=== PATIENT | female | born 1985 | race Two or more races ===

== ENCOUNTER 2016-09-13 20:18 | Emergency (ER) | payer OTHER ==
[2016-09-13 20:29] VITALS: BP 138/90; PULSE 110; BMI 25.4
[2016-09-13] MEDS ORDERED: FAMOTIDINE 20 MG/50 ML IVPB 50 ML IVPB ONE ×2 (21:00→21:25)
[2016-09-13] MEDS ORDERED: SODIUM CHLORIDE 1,000 ML IV STA (21:00)
[2016-09-13] MEDS ORDERED: ACETAMINOPHEN 325 MG TABLET (FP) PO ONE (21:00)
[2016-09-13] MEDS ORDERED: ACETAMINOPHEN 325 MG TABLET (FP) ONE (21:25)
--- NOTE | 2016-09-13 21:49 | PDOC ---
History of Present Illness - General History Source: Patient Exam Limitations: No Limitations - History of Present Illness Initial Comments: 09/14/16 00:30 The patient is a 31 year old female (), with no significant past medical history, who presents to the ED with sharp epigastric and suprapubic pain. The patient went for a routine transvaginal ultrasound with her claims counsel doctor today. She reported that she had an IUP. Approximately 2 hours prior to arrival , after she ate some food, she developed a sharp epigastric and suprapubic pain. Patient describes the abdominal pain as 9/10 in severity. Patient states the abdominal pain starts from the top mid abdomen and radiates to the bottom. Patient denies nausea, vomiting, diarrhea. Patient denies vagianal discharge, bleeding. <Lee Nunn - Last Filed: 09/14/16 00:30> - General History Source: Patient, Family Exam Limitations: No Limitations <Homero Kulkarni - Last Filed: 09/14/16 02:13> - General Chief Complaint: Pain Stated Complaint: 7WKS/ABD PAIN Time Seen by Provider: 09/13/16 20:55 Past History <Lee Nunn - Last Filed: 09/14/16 00:30> - Past Medical History Other medical history: Denies - Reproductive History (#): 3 Para: 0 Cervical CA: No Dysfunctional Uterine Bleeding: No Ectopic : Yes (1) Endometrial CA: No Polycystic Ovaries: No Therapeutic (s) & number: Yes (1) Tubal Ligation: No Spontaneous : 1 - Immunization History Immunization Up to Date: Yes - Psycho/Social/Smoking Cessation Hx Anxiety: No Suicidal Ideation: No Smoking History: Never smoked Have you smoked in the past 12 months: No Information on smoking cessation initiated: No Hx Alcohol Use: No Drug/Substance Use Hx: No Substance Use Type: None Hx Substance Use Treatment: No <Homero Kulkarni - Last Filed: 09/14/16 02:13> - Past Medical History Allergies/Adverse Reactions: Allergies Allergy/AdvReac Type Severity Reaction Status Date / Time No Known Allergies Allergy Verified 09/13/16 20:24 Home Medications: Ambulatory Orders Oxycodone HCl/Acetaminophen [Percocet 5/325 -] 1 tab PO Q6H #20 tablet 11/29/15 Acetaminophen [Tylenol] 650 mg PO Q4H PRN #20 tablet 09/14/16 Oxycodone HCl 5 mg PO Q6H PRN #15 tablet MDD 4 09/14/16 Review of Systems - Review of Systems Able to Perform ROS?: Yes Comments:: 09/14/16 00:30 GENERAL/CONSTITUTIONAL: No fever or chills. No weakness. HEAD, EYES, EARS, NOSE AND THROAT: No change in vision. No ear pain or discharge. No sore throat. CARDIOVASCULAR: No chest pain or shortness of breath. RESPIRATORY: No cough, wheezing, or hemoptysis. GASTROINTESTINAL: No nausea, vomiting, diarrhea or constipation. GENITOURINARY: No dysuria, frequency, or change in urination. MUSCULOSKELETAL: No joint or muscle swelling or pain. No neck or back pain. ABDOMINAL: Epigastric and suprapubic pain. SKIN: No rash NEUROLOGIC: No headache, vertigo, loss of consciousness, or change in strength/ sensation. ENDOCRINE: No increased thirst. No abnormal weight change. HEMATOLOGIC/LYMPHATIC: No anemia, easy bleeding, or history of blood clots. ALLERGIC/IMMUNOLOGIC: No hives or skin allergy. <Lee Nunn - Last Filed: 09/14/16 00:30> *Physical Exam - Vital Signs Last Vital Signs Temp Pulse Resp BP Pulse Ox 110 H 16 138/90 100 09/13/16 20:24 09/13/16 20:24 09/13/16 20:24 09/13/16 20:24 - Physical Exam Comments: 09/14/16 00:31 GENERAL: Awake, alert, and fully oriented, in no acute distress HEAD: No signs of trauma EYES: PERRLA, EOMI, sclera anicteric, conjunctiva clear ENT: Auricles normal inspection, hearing grossly normal, nares patent, oropharynx clear without exudates. Moist mucosa NECK: Normal ROM, supple, no lymphadenopathy, JVD, or masses LUNGS: Breath sounds equal, clear to auscultation bilaterally. No wheezes, and no crackles HEART: Regular rate and rhythm, normal S1 and S2, no murmurs, rubs or gallops ABDOMEN: Suprapubic and epigastric tenderness. normoactive bowel sounds. No guarding, no rebound. No masses EXTREMITIES: Normal range of motion, no edema. No clubbing or cyanosis. No cords, erythema, or tenderness NEUROLOGICAL: Cranial nerves II through XII grossly intact. Normal speech, normal gait SKIN: Warm, Dry, normal turgor, no rashes or lesions noted. <Lee Nunn - Last Filed: 09/14/16 00:30> - Vital Signs Last Vital Signs Temp Pulse Resp BP Pulse Ox 110 H 16 138/90 100 09/13/16 20:24 09/13/16 20:24 09/13/16 20:24 09/13/16 20:24 <Homero Kulkarni - Last Filed: 09/14/16 02:13> ED Treatment Course - LABORATORY CBC & Chemistry Diagram: 09/13/16 21:20 09/13/16 22:52 - ADDITIONAL ORDERS Additional order review: Laboratory Results 09/13/16 09/13/16 09/13/16 22:52 21:20 21:20 Sodium 138 Cancelled Potassium 4.2 Cancelled Chloride 105 Cancelled Carbon Dioxide 20 L D Cancelled Anion Gap 13 Cancelled BUN 11 Cancelled Creatinine 0.6 Cancelled Creat Clearance w eGFR > 60 Cancelled Random Glucose 129 H D Cancelled Calcium 8.3 L Cancelled Total Bilirubin 0.3 D Cancelled AST 23 D Cancelled ALT 20 Cancelled Alkaline Phosphatase 61 D Cancelled Total Protein 7.0 Cancelled Albumin 3.5 Cancelled Lipase 159 Cancelled Beta HCG, Quant Cancelled Blood Type Cancelled Antibody Screen Cancelled Spec Expiration Date Cancelled 09/13/16 21:20 RBC 3.84 MCV 94.5 MCHC 32.4 RDW 12.8 MPV 10.3 Neutrophils % 80.1 Lymphocytes % 12.4 D Monocytes % 6.6 Eosinophils % 0.5 Basophils % 0.4 - Medications Given in the ED: ED Medications Discontinued Medications Generic Name Dose Route Start Last Admin Trade Name Freq PRN Reason Stop Dose Admin Acetaminophen 650 mg 09/13/16 21:00 09/13/16 21:35 Tylenol - PO 09/13/16 21:01 650 mg ONCE ONE Administration Famotidine/Sodium Chloride 50 mls @ 100 mls/hr 09/13/16 21:00 09/13/16 21:35 Pepcid 20 Mg Premixed Ivpb - IVPB 09/13/16 21:29 100 mls/hr ONCE ONE Administration Sodium Chloride 1,000 mls @ 1,000 mls/hr 09/13/16 21:00 09/13/16 21:24 Normal Saline - IV 09/13/16 21:59 1,000 mls/hr ASDIR STA Administration Oxycodone HCl 10 mg 09/13/16 23:03 09/13/16 23:08 Roxicodone - PO 09/13/16 23:04 10 mg ONCE ONE Administration <Lee Nunn - Last Filed: 09/14/16 00:30> - LABORATORY CBC & Chemistry Diagram: 09/13/16 21:20 09/13/16 22:52 - RADIOLOGY Radiology Studies Ordered: Category Date Time Status ABDOMEN US [US] Stat Ultrasound 09/13/16 21:00 Ordered TRANSVAGINAL US PREG [US] Stat Ultrasound 09/13/16 21:00 Ordered <Homero Kulkarni - Last Filed: 09/14/16 02:13> Medical Decision Making - Medical Decision Making 09/13/16 21:03 A portion of this note was documented by scribe services under my direction. I have reviewed the details of the note, within reason, and agree with the documentation with the following case summary and management plan written by me. Patient treated in the ED. Nursing notes are reviewed and incorporated into the medical decision-making. Vital signs reviewed. Peripheral IV access obtained by the nurse, laboratory studies are drawn and sent, reviewed and interpreted by myself. Vital Signs Temp Pulse Resp BP Pulse Ox 110 H 16 138/90 100 09/13/16 20:24 09/13/16 20:24 09/13/16 20:24 09/13/16 20:24 31-year-old female with no past medical history, approximate 7 weeks , presents to the emergency department for suprapubic and epigastric abdominal pain. The patient went for a routine transvaginal ultrasound with her claims counsel doctor today. She reported that she had an IUP. Approximately 2 hours prior to arrival, after she ate some food, she developed a sharp epigastric and suprapubic pain. Denies vaginal bleeding, dysuria, nauesa, vomiting. The patient has a history of 3 miscarriages. She has no tenderness at McBurney's. Will r/o cystitis, miscarriage. Will also treat as gastritis. Will check labs. Pain medications and IVF and reassess. 09/14/16 01:56 Before the patient went to her ultrasound, she had a large bleed from her vagina. I suspect she is likely having a miscarriage. CBC, BMP 09/13/16 21:20 09/13/16 22:52 CMP Sodium 138 mmol/L (136-145) 09/13/16 22:52 Potassium 4.2 mmol/L (3.5-5.1) 09/13/16 22:52 Chloride 105 mmol/L (98-107) 09/13/16 22:52 Carbon Dioxide 20 mmol/L (21-32) L D 09/13/16 22:52 Anion Gap 13 (8-16) 09/13/16 22:52 BUN 11 mg/dL (7-18) 09/13/16 22:52 Creatinine 0.6 mg/dL (0.55-1.02) 09/13/16 22:52 Creat Clearance w eGFR > 60 (>60) 09/13/16 22:52 Random Glucose 129 mg/dL (74-106) H D 09/13/16 22:52 Calcium 8.3 mg/dL (8.5-10.1) L 09/13/16 22:52 Total Bilirubin 0.3 mg/dL (0.2-1.0) D 09/13/16 22:52 AST 23 U/L (15-37) D 09/13/16 22:52 ALT 20 U/L (12-78) 09/13/16 22:52 Alkaline Phosphatase 61 U/L (45-117) D 09/13/16 22:52 Total Protein 7.0 g/dl (6.4-8.2) 09/13/16 22:52 Albumin 3.5 g/dl (3.4-5.0) 09/13/16 22:52 Lipase 159 U/L (73-393) 09/13/16 22:52 Beta HCG, Quant 3251.0 mIU/ml 09/14/16 00:23 Previous type and screen is B positive. Beta HCG is 3251. Abdominal ultrasound reviewed. No acute findings. Transvaginal ultrasound: multiple leiomyomas, endometrium is thickened and heterogeneous in appearance measuring up to 1.9 cm with no intrauterine gestational sac visualized. In the setting of confirmed intrauterine findings could be related to spontaneous with possible retained products of conception. Ectopic gestation cannot be ruled out. I had discussed the case directly with patient's [employer] OPERATOR surgeon Dr. Jett at [phone]. She confirms to me that the patient did indeed have an IUP today on her visit earlier today. She agrees that the patient can follow up in 2 days with her. The patient feels better. Results have been given a copy. She will go home with her family. Return precautions given. I discussed the physical exam findings, ancillary test results and final diagnoses with the patient. I answered all of the patient's questions. The patient was satisfied with the care received and felt comfortable with the discharge plan and treatment plan. The patient will call their primary care physician within 24 hours to arrange follow-up and will return to the Emergency Department with any new, persistant or worsening symptoms. <Homero Kulkarni - Last Filed: 09/14/16 02:13> *DC/Admit/Observation/Transfer - Attestations Scribe Attestion: 09/14/16 00:31 Documentation prepared by Lee Nunn, acting as director of medical services for Homero Kulkarni MD, . <Lee Nunn - Last Filed: 09/14/16 00:30> - Discharge Dispostion Admit: No <Homero Kulkarni - Last Filed: 09/14/16 02:13> Diagnosis at time of Disposition: Spontaneous - Discharge Dispostion Disposition: HOME Condition at time of disposition: Improved - Prescriptions Prescriptions: Oxycodone HCl 5 mg PO Q6H PRN #15 tablet MDD 4 PRN Reason: Severe Pain Acetaminophen [Tylenol] 650 mg PO Q4H PRN #20 tablet PRN Reason: Pain - Patient Instructions Printed Discharge Instructions: DI for Miscarriage Additional Instructions: Please bring a copy of your results to your doctor in 2 days. Take 650 mg tylenol every 4 hours as needed for pain. Take a tablet of oxycodone every 6 hours as needed for severe pain control. You may continue to have spotting.
[2016-09-13 22:03] LABS: BASOPHIL 0.4 % (0-2.0); EOSINOPHIL 0.5 % (0-4.5); MCH 30.6 pg (25.7-33.7); MCHC 32.4 g/dl (32.0-36.0); MEAN CELL VOLUME 94.5 fl (80-96); MEAN PLT VOLUME 10.3 fl (7.5-11.1); NEUTROPHILS 80.1 % (42.8-82.8); PLATELET COUNT 284 K/MM3 (134-434); RDW 12.8 % (11.6-15.6); WHITE BLOOD COUNT 16.6 K/mm3 (4.0-10.0)
[2016-09-13] MEDS ORDERED: oxyCODONE HCL 5 MG TABLET ONE (23:01)
[2016-09-13] MEDS ORDERED: oxyCODONE HCL 5 MG TABLET PO ONE (23:03)
[2016-09-13 23:46] LABS: ALBUMIN 3.5 g/dl (3.4-5.0); ALK PHOS 61 U/L (45-117); ANION GAP 13 (8-16); BILIRUBIN,TOTAL 0.3 mg/dL (0.2-1.0); CALCIUM 8.3 mg/dL (8.5-10.1); CO2 20 mmol/L (21-32); CREATININE 0.6 mg/dL (0.55-1.02); GLUCOSE,RANDOM 129 mg/dL (74-106); SGPT/ALT 20 U/L (12-78)
[2016-09-13 23:48] LABS: SGOT/AST 23 U/L (15-37)
[2016-09-14] MEDS ORDERED: oxyCODONE HCL 5 MG TABLET PO ONE (02:08)
[2016-09-14] MEDS ORDERED: oxyCODONE HCL 5 MG TABLET ONE (02:56)
== END 2016-09-14 03:00 | disposition home or self-care (01) ==
LOC: JER 20:18
PROC: 3E033GC Introduction of Other Therapeutic Substance into Peripheral Vein, Percutaneous Approach (ICD-10-PCS; principal; 2016-09-13)
DX: O03.4 Incomplete spontaneous abortion without complication (principal); Z3A.01 Less than 8 weeks gestation of pregnancy
CPT/HCPCS: 36415; 76700-TC; 76817-TC; 80053; 83690; 84702; 85025; 99282-25

== ENCOUNTER 2016-09-19 12:09 | Inpatient (IN) | payer OTHER ==
[2016-09-19 12:20] VITALS: BMI 26.4
[2016-09-19] MEDS ORDERED: ACETAMINOPHEN 500 MG TABLET (FP) PO ONE (13:44)
[2016-09-19] MEDS ORDERED: PANTOPRAZOLE SODIUM 40 MG in SODIUM CHLORIDE 100 ML IVPB ONE (14:04)
--- NOTE | 2016-09-19 14:05 | PDOC ---
*Physical Exam - Vital Signs Last Vital Signs Temp Pulse Resp BP Pulse Ox 98.2 F 96 H 18 125/77 100 09/19/16 12:17 09/19/16 12:17 09/19/16 12:17 09/19/16 12:17 09/19/16 12:17 - Physical Exam Comments: 09/19/16 14:05 MIDLEVEL NOTE Pt seen by Midlevel Provider under my direct supervision. Pt interviewed and examined. Ancillary studies reviewed. I agree with plan as outlined by Midlevel Provider. 09/19/16 16:43 CBC and CMP reviewed Quantitative beta 6771 Up from the 3000 range on the prior ultrasound There is an increase in complex pelvic and upper abdominal fluid with right adnexal mass suspicious for ectopic Patient to go to the OR with PAYROLL ASSOCIATE Impression-ectopic Blood type B positive, labwork reviewed ED Treatment Course - LABORATORY CBC & Chemistry Diagram: 09/19/16 14:20 09/19/16 14:20 *DC/Admit/Observation/Transfer Diagnosis at time of Disposition: Ectopic of ovary Qualifiers: Intrauterine status: without intrauterine Qualified Code(s) : O00.2 - Ovarian - Discharge Dispostion Condition at time of disposition: Fair
[2016-09-19] MEDS ORDERED: PANTOPRAZOLE SODIUM 100 ML IVPB ONE (14:08)
--- NOTE | 2016-09-19 14:17 | PDOC ---
History of Present Illness - General Chief Complaint: Vaginal Bleeding Stated Complaint: (8 WKS ), VAG BLEEDING, ABD PAIN Time Seen by Provider: 09/19/16 13:40 History Source: Patient Exam Limitations: No Limitations - History of Present Illness Travel History: No Initial Comments: 09/19/16 14:01 31-year-old female (8 weeks )presents to the ED with complaints of right flank and right abdominal pain after eating food at 10:30 last night. Patient states pain is worsened with deep breathing and movement and now also has some brownish pinkish discharge. Patient states was here last week due to lower abdominal pain but had no vaginal bleeding and was sent home to follow-up with her BUS ANALYST. Patient states pain has not radiated to her right midabdomen and decided come to the ER today when symptoms worsen. Patient denies nausea, vomiting, dysuria, diarrhea, fever or chills. Patient denies dyspareunia. Timing/Duration: reports: intermittent Quality: reports: moderate, cramping, sharpness Abdominal Pain Onset Location: reports: periumbilical (upper), suprapubic, flank Pain Radiation: reports: RUQ Aggravating Factors: improves with: Eating, Movement Alleviating Factors: improves with: Rest Past History - Past Medical History Allergies/Adverse Reactions: Allergies Allergy/AdvReac Type Severity Reaction Status Date / Time No Known Allergies Allergy Verified 09/19/16 12:19 Home Medications: Ambulatory Orders Oxycodone HCl/Acetaminophen [Percocet 5/325 -] 1 tab PO Q6H #20 tablet 07/30/15 Acetaminophen [Tylenol] 650 mg PO Q4H PRN #20 tablet 09/14/16 Oxycodone HCl 5 mg PO Q6H PRN #15 tablet MDD 4 09/14/16 - Reproductive History Is Patient Now?: Yes (#): 3 Para: 0 Cervical CA: No Dysfunctional Uterine Bleeding: No Ectopic : Yes (1) Endometrial CA: No Polycystic Ovaries: No Therapeutic (s) & number: Yes (1) Tubal Ligation: No Spontaneous : 1 - Immunization History Immunization Up to Date: Yes - Psycho/Social/Smoking Cessation Hx Anxiety: No Suicidal Ideation: No Smoking History: Never smoked Have you smoked in the past 12 months: No Information on smoking cessation initiated: No Hx Alcohol Use: No Drug/Substance Use Hx: No Substance Use Type: None Hx Substance Use Treatment: No Patient Lives Alone: No Lives with/in: spouse/SO Review of Systems - Review of Systems Able to Perform ROS?: Yes Constitutional: No: Symptoms Reported HEENTM: No: Symptoms Reported Respiratory: No: Symptoms reported Cardiac (ROS): No: Symptoms Reported ABD/GI: Yes: Abdominal cramping. No: Constipated, Diarrhea, Nausea, Vomiting : Yes: Flank Pain (right) Musculoskeletal: No: Symptoms Reported Integumentary: No: Symptoms Reported Neurological: No: Symptoms reported Hematologic/Lymphatic: No: Symptoms Reported *Physical Exam - Vital Signs Last Vital Signs Temp Pulse Resp BP Pulse Ox 98.2 F 96 H 18 125/77 100 09/19/16 12:17 09/19/16 12:17 09/19/16 12:17 09/19/16 12:17 09/19/16 12:17 - Physical Exam General Appearance: Yes: Nourished, Appropriately Dressed. No: Apparent Distress HEENT: positive: EOMI, BRIAN. negative: Pale Conjunctivae Neck: positive: Supple Respiratory/Chest: positive: Lungs Clear, Normal Breath Sounds. negative: Respiratory Distress, Accessory Muscle Use Cardiovascular: positive: Regular Rhythm, Regular Rate. negative: Murmur Female Pelvic Exam: positive: cervical os closed, vaginal bleeding (scant brownish pink). negative: adnexal tenderness Gastrointestinal/Abdominal: positive: Soft, Tenderness (upper periumbilical, right lower quadrant, right suprapubic, and mild right upper quadrant. Negative Goldberg's.) Musculoskeletal: negative: CVA Tenderness Extremity: positive: Normal Capillary Refill. negative: Pedal Edema Integumentary: positive: Normal Color, Warm, Moist Neurologic: positive: Motor Strength 5/5 ( ambulatory) ED Treatment Course - LABORATORY CBC & Chemistry Diagram: 09/19/16 14:20 09/19/16 14:20 - RADIOLOGY Radiology Studies Ordered: Category Date Time Status <14WKS US [US] Stat Ultrasound 09/19/16 13:44 Ordered Medical Decision Making - Critical Care Time Total Critical Care Time (minutes): 35 Critical Care Statement: The care of this patient involved high complexity decision making to prevent further life threatening deterioration of the patient 's condition and/or to evalute & treat vital organ system(s) failure or risk of failure. - Medical Decision Making 09/19/16 14:09 She is currently 8 weeks complaining of right abdominal pain greater in the right lower quadrant. Patient also mentioning spotting since this morning. Patient denies passing a large clot but states brownish pink discharge. Patient on exam had no adnexal tenderness ENT negative off was closed. Patient did have tenderness to right lower quadrant and right periumbilical region patient ordered for labs including lipase Tylenol, Protonix, and urine with culture. Patient also ordered for ultrasound since it was mention of a corpus luteum to the right ovary and there was no IUP on ultrasound although patient states has been confirm that she does have an IUP by her BUS ANALYST. Type and screen and beta count also added. 09/19/16 16:06 Laboratory Tests 09/14/16 09/19/16 09/19/16 00:23 14:20 14:20 WBC 8.3 D Hgb 10.0 L D Hct 29.4 L D Plt Count 223 D Neutrophils % 73.0 Sodium 140 Potassium 4.2 Chloride 102 Carbon Dioxide 26 D Anion Gap 12 BUN 10 Creatinine 0.6 Creat Clearance w eGFR > 60 Calcium 9.1 AST 26 ALT 19 Alkaline Phosphatase 55 Total Protein 7.7 Albumin 4.0 Lipase Beta HCG, Quant 3251.0 6771.8 Urine Ketones Urine Blood Ur Leukocyte Esterase Urine WBC 09/19/16 09/19/16 14:20 14:30 WBC Hgb Hct Plt Count Neutrophils % Sodium Potassium Chloride Carbon Dioxide Anion Gap BUN Creatinine Creat Clearance w eGFR Calcium AST ALT Alkaline Phosphatase Total Protein Albumin Lipase 124 Beta HCG, Quant Urine Ketones Trace H Urine Blood 3+ H Ur Leukocyte Esterase Negative Urine WBC 8 Patient states feeling comfortable after Tylenol . awaiting ultrasound report. Ultrasound shows an increase in complex pelvic and upper abdominal fluid in the right adnexal mass suspicious for ectopic. Masses measuring 5.9 x 4.2 x 5.3 cm. Case discussed with Dr. Smith and will get OR time. Patient made nothing by mouth. patient ordered for maintenance fluids. 09/19/16 17:09 In speaking with patient patient states has had no ectopic to the right side before but responded well to methotrexate. *DC/Admit/Observation/Transfer Diagnosis at time of Disposition: Ectopic of ovary Qualifiers: Intrauterine status: without intrauterine Qualified Code(s) : O00.2 - Ovarian - Discharge Dispostion Condition at time of disposition: Fair Admit: Yes
[2016-09-19 14:38] LABS: BASOPHIL 0.6 % (0-2.0); MCH 32.4 pg (25.7-33.7); MEAN CELL VOLUME 95.2 fl (80-96); MEAN PLT VOLUME 9.4 fl (7.5-11.1); PLATELET COUNT 223 K/MM3 (134-434); RDW 13.4 % (11.6-15.6); WHITE BLOOD COUNT 8.3 K/mm3 (4.0-10.0)
[2016-09-19 14:39] LABS: URINE APPEARANCE SLCLOUDY; URINE BILIRUBIN NEGATIVE (NEGATIVE); URINE COLOR AMBER; URINE GLUCOSE (UA) NEGATIVE (NEGATIVE); URINE KETONE TRACE (NEGATIVE); URINE LEUK ESTERASE NEGATIVE (NEGATIVE); URINE NITRITE NEGATIVE (NEGATIVE); URINE UROBILINOGEN NEGATIVE E.U./dl (0.2-1.0)
[2016-09-19 14:40] LABS: URINE BLOOD 3+ (NEGATIVE); URINE PROTEIN 1+ (NEGATIVE)
[2016-09-19 14:44] LABS: URINE MUCUS MANY; URINE RBC 4 /hpf (0-3); URINE WBC 8 /hpf (3-5)
[2016-09-19 15:18] LABS: ANION GAP 12 (8-16); BILIRUBIN,TOTAL 0.8 mg/dL (0.2-1.0); CALCIUM 9.1 mg/dL (8.5-10.1); CO2 26 mmol/L (21-32); CREATININE 0.6 mg/dL (0.55-1.02); GLUCOSE,RANDOM 82 mg/dL (74-106); SGOT/AST 26 U/L (15-37); SGPT/ALT 19 U/L (12-78)
[2016-09-19 15:33] LABS: ALK PHOS 55 U/L (45-117); TOT PROT 7.7 g/dl (6.4-8.2)
[2016-09-19] MEDS: DEXTROSE 5%-NORMAL SALINE 1,000 ML IV SCH ×2 (17:17→23:45)
[2016-09-19 18:54] LABS: INR 1.2 (0.82-1.09); PROTHROMBIN TIME (PATIENT) 13.3 SEC (9.98-11.88)
[2016-09-19 18:57] LABS: ACTIVATED PTT 29.9 SECONDS (26.9-34.4)
--- NOTE | 2016-09-19 20:07 | HP ---
Admitting History and Physical - Admission Chief Complaint: Abdominal pain in History of Present Illness: 31 yo with positive chemical , presents to ER c/o abdominal pain associated with vaginal bleeding. Sonogram done and showed evidence of a left adnexa mass consistent with ectopic . Decision made to take patient to the OR. History Source: Patient Limitations to Obtaining History: No Limitations - Past Medical History ...LMP: 09/01/16 ...: Yes ...: 2 ...Para: 0 - Past Surgical History Past Surgical History: Yes: None - Smoking History Smoking history: Never smoked Have you smoked in the past 12 months: No - Alcohol/Substance Use Hx Alcohol Use: No History of Substance Use: reports: None - Social History Usual Living Arrangement: Yes: With Significant Other History of Recent Travel: No Home Medications - Allergies Allergies/Adverse Reactions: Allergies Allergy/AdvReac Type Severity Reaction Status Date / Time No Known Allergies Allergy Verified 09/19/16 12:19 - Home Medications Home Medications: Ambulatory Orders Oxycodone HCl/Acetaminophen [Percocet 5/325 -] 1 tab PO Q6H #20 tablet 07/30/15 Acetaminophen [Tylenol] 650 mg PO Q4H PRN #20 tablet 09/14/16 Oxycodone HCl 5 mg PO Q6H PRN #15 tablet MDD 4 09/14/16 Family Disease History - Family Disease History Family History: Unremarkable Review of Systems - Review of Systems Constitutional: reports: No Symptoms Eyes: reports: No Symptoms HENT: reports: No Symptoms Neck: reports: No Symptoms Cardiovascular: reports: No Symptoms Respiratory: reports: No Symptoms Gastrointestinal: reports: No Symptoms Genitourinary: reports: Vaginal Bleeding Breasts: reports: No Symptoms Reported Musculoskeletal: reports: No Symptoms Integumentary: reports: No Symptoms Neurological: reports: No Symptoms Endocrine: reports: No Symptoms Hematology/Lymphatic: reports: No Symptoms Psychiatric: reports: No Symptoms Pain Intensity: 5 Physical Examination Vital Signs: Vital Signs Temperature 98.2 F 09/19/16 12:17 Pulse Rate 97 H 09/19/16 17:18 Respiratory Rate 18 09/19/16 17:18 Blood Pressure 123/84 09/19/16 17:18 O2 Sat by Pulse Oximetry (%) 97 09/19/16 17:18 Constitutional: Yes: Well Nourished Eyes: Yes: WNL HENT: Yes: WNL Neck: Yes: Supple, Trachea Midline Cardiovascular: Yes: Regular Rate and Rhythm Respiratory: Yes: Regular, CTA Bilaterally Gastrointestinal: Yes: Normal Bowel Sounds ...Rectal Exam: Yes: WNL Breast(s): Yes: WNL Musculoskeletal: Yes: WNL Extremities: Yes: WNL Integumentary: Yes: WNL Neurological: Yes: Alert, Oriented ...Motor Strength: WNL Psychiatric: Yes: Alert, Oriented Assessment/Plan Ectopic Pre op for Laparoscopic salpingostomy / possible salpingectomy / possible oophorectomy Consent signed Anesthesia to see patient
[2016-09-19] MEDS ORDERED: PROPOFOL 20 ML ONE (21:05)
[2016-09-19] MEDS ORDERED: ROCURONIUM BROMIDE 50 MG/5 ML VIAL ONE (21:06)
[2016-09-19] MEDS ORDERED: ONDANSETRON 4 MG/2 ML VIAL ONE ×2 (21:06→22:23)
[2016-09-19] MEDS ORDERED: LIDOCAINE HCL/PF 2% SDV 5ML VIAL ONE (21:06)
[2016-09-19] MEDS ORDERED: DEXAMETHASONE SOD PHOSPHATE 4 MG/1 ML VIAL ONE ×2 (21:06→22:23)
[2016-09-19] MEDS ORDERED: ceFAZolin SODIUM 1 GM VIAL ONE (21:15)
[2016-09-19] MEDS ORDERED: ceFAZolin SODIUM 1 GM VIAL IVPB ONE (21:20)
[2016-09-19] MEDS ORDERED: LABETALOL HCL 5 MG/1 ML (100MG/20 ML VIAL) ONE (21:29)
[2016-09-19] MEDS ORDERED: GLYCOPYRROLATE 0.2 MG/1 ML VIAL ONE (22:26)
[2016-09-19] MEDS ORDERED: NEOSTIGMINE METHYLSULFATE 0.5 MG/ML - 10 ML MDV ONE (22:26)
[2016-09-19] MEDS ORDERED: ONDANSETRON 4 MG/2 ML VIAL IVPUSH PRN (22:41)
[2016-09-19] MEDS ORDERED: PROMETHAZINE HCL 25 MG/1 ML VIAL IVPUSH PRN (22:41)
--- NOTE | 2016-09-19 22:41 | OP ---
Operative Note - Note: Operative Date: 09/19/16 Pre-Operative Diagnosis: Ectopic Operation: Laparoscopic right salpingectomy Findings: Ruptured right tubal Hemoperitoneum Post-Operative Diagnosis: Same as Pre-op Surgeon: Fabiana Smith Plumber Supervisor: Choco Ricci Anesthesia: General Specimens Removed: Right tubal Estimated Blood Loss (mls): 50
[2016-09-19] MEDS: HYDROmorphone HCL CARPU-JECT 2 MG/1 ML DISP.SYRIN IVPUSH PRN ×2 (22:45→23:00)
[2016-09-19] MEDS ORDERED: HYDROmorphone HCL CARPU-JECT 2 MG/1 ML DISP.SYRIN ONE (22:51)
[2016-09-19] MEDS ORDERED: oxyCODONE HCL 5 MG TABLET PO PRN (23:05)
[2016-09-20] MEDS: oxyCODONE HCL 5 MG TABLET PO PRN ×4 (00:28→11:18)
[2016-09-20 06:16] VITALS: PULSE 108
[2016-09-20] MEDS ORDERED: IBUPROFEN 600 MG TABLET (FP) PO PRN (09:32)
[2016-09-20] MEDS ORDERED: ACETAMINOPHEN 325 MG TABLET (FP) PO PRN (09:33)
[2016-09-20] MEDS ORDERED: SIMETHICONE 80 MG TAB.CHEW (FP) PO SCH (09:45)
[2016-09-20] MEDS ORDERED: SIMETHICONE 80 MG TAB.CHEW (FP) PO PRN (09:45)
[2016-09-20 09:59] VITALS: BP 102/64; TEMP 99.2
--- NOTE | 2016-09-20 11:16 | PN ---
Progress Note (short form) - Note Progress Note: ANESTHESIA POST-OP CHECK 31F s/p laparoscopic right salpingectomy under general anesthesia POD #1. C/o pain 8/10. Denies N/V, tolerating liquids PO, ambulating and voiding. Gen: Awake, alert No apparent anesthesia complications. Spoke with nurse regarding giving patient pordered PRN pain meds. Continue management as per primary team.
--- NOTE | 2016-09-20 15:32 | EKG ---
Test Reason : Blood Pressure : / mmHG Vent. Rate : 085 BPM Atrial Rate : 085 BPM P-R Int : 146 ms QRS Dur : 084 ms QT Int : 390 ms P-R-T Axes : 029 016 022 degrees QTc Int : 464 ms NORMAL SINUS RHYTHM NORMAL ECG NO PREVIOUS ECGS AVAILABLE Confirmed by EDMUND MCCOY MD ([id number]) on 09/20/2016 3:31:40 PM Referred By: Confirmed By:EDMUND MCCOY MD
--- NOTE | 2016-09-23 14:22 | PATH ---
Surgical Pathology Report Patient Name: JAMIE FERNANDO Med. Rec. #: [id number] /Age/Gender: 1985 (Age: 31) / F Account: [id number] Location: [facility] OBS/FOOD SERVICES MANAGER Taken: 09/19/2016 Received: 09/20/2016 Reported: 09/23/2016 Physicians: Fabiana Smith M.D. Specimen(s) Received RIGHT TUBAL Clinical History Ectopic Final Diagnosis RIGHT TUBAL , SALPINGECTOMY: FRAGMENTS OF DIRUPTED BENIGN FALLOPIAN TUBE AND FRAGMENTS OF BLOOD CLOT. NO CHORIONIC VILLI OR SOMATIC TISSUE IDENTIFIED IN THE EXAMINED MATERIAL. Comment: Clinical and imaging correlations and follow up are suggested. Electronically Signed Dejuan Richardson M.D. Gross Description Received in formalin, labeled "right tubal " is a 5.0 x 3.7 x 0.6 cm aggregate of acevedo, irregular portions of soft tissue admixed with blood clot. No definite villous tissue or somatic tissue is identified. No definite fallopian tube is identified. The specimen is entirely submitted in 4 cassettes. /09/20/2016 [facility]09/20/2016
--- NOTE | 2016-11-11 20:01 | OP ---
DATE OF OPERATION: 09/20/2016 PREOPERATIVE DIAGNOSIS: Ectopic . POSTOPERATIVE DIAGNOSIS: Ruptured ectopic . SURGEON: Fabiana Smith MD MACHINE FEATHEREDGER AND REDUCER: Choco Ricci MD ANESTHESIA: General. PROCEDURE: Laparoscopic right salpingectomy. ESTIMATED BLOOD LOSS: 50 mL. DESCRIPTION OF PROCEDURE: Patient was taken to the operating room, where general anesthesia was administered. Patient was then placed in lithotomy position. She was then prepped and draped in proper sterile fashion. A weighted speculum was placed in the vagina. The anterior lip of the cervix was grasped with a single-tooth tenaculum, and a HUMI uterine manipulator was then gently introduced into the uterine cavity. Then, Becker catheter was then placed. Attention was then turned to the abdomen where a 5-mm skin incision was then made in the umbilical fold. The Veress needle was carefully introduced into the peritoneal cavity while tenting the abdominal wall. Intraperitoneal placement was confirmed by use of a water-filled syringe and the intraabdominal pressure insufflation of CO2 gas. The trocar and sleeve were then advanced without difficulty into the abdomen, where intraabdominal placement was confirmed by the laparoscope. Pneumoperitoneum was obtained with 3 L of CO2 gas. Then, the 5-mm trocar and sleeve were then advanced without difficulty into the abdomen where intraabdominal placement was confirmed by the laparoscope. The 2nd and 3rd skin incisions were made 3 cm above the pubic symphysis and 5 mm away from the midline. The 2nd and 3rd trocar and sleeve were then advanced under direct visualization. Inspection of the patients abdomen and pelvis revealed a hemoperitoneum suggestive of ruptured ectopic . There were a lot of adhesions noted on the right adnexa. Adhesiolysis was performed. All the blood was then suctioned out. The products of conception on the pelvis were then removed with the help of an Endobag. A Right salpingectomy was performed. Then, after complete irrigation, the instruments were removed, the patient was taken out of lithotomy position. The uterine manipulator and Becker catheter were then removed, and patient was taken to PACU in stable condition. PATHOLOGY: Products of conception. Tariq MARTINEZ/[id number] MTDD
--- NOTE | 2016-11-12 21:04 | DS ---
Physical Examination Vital Signs: Vital Signs Temperature 99.2 F 09/20/16 09:58 Pulse Rate 108 H 09/20/16 09:58 Respiratory Rate 20 09/20/16 09:58 Blood Pressure 102/64 09/20/16 09:58 O2 Sat by Pulse Oximetry (%) 99 09/20/16 07:37 Constitutional: Yes: Well Nourished Eyes: Yes: Conjunctiva Clear HENT: Yes: Atraumatic Neck: Yes: Supple, Trachea Midline Cardiovascular: Yes: Regular Rate and Rhythm Respiratory: Yes: Regular, CTA Bilaterally Gastrointestinal: Yes: Normal Bowel Sounds ...Rectal Exam: Yes: WNL Renal/: Yes: WNL Breast(s): Yes: WNL Musculoskeletal: Yes: WNL Extremities: Yes: WNL Wound/Incision: Yes: Well Approximated, Dressing Dry and Intact Neurological: Yes: Alert, Oriented Psychiatric: Yes: Alert, Oriented Discharge Summary Reason For Visit: ETOPIC OF OVARY Ectopic Procedures: Principal: Status post Laparoscopic salpingoophorectomy Hospital Course: Post op care / Pain management Condition: Fair - Instructions Diet, Activity, Other Instructions: Regular diet Call MD if fever, abdominal distention and pain out of proportion. F/U with MD in 2 weeks. Pick pain medication in your pharmacy. Referrals: Fabiana Smith MD [Staff Physician] - Naun Vogel MD [Primary Care Provider] - Disposition: HOME - Home Medications Comprehensive Discharge Medication List: Ambulatory Orders Oxycodone HCl/Acetaminophen [Percocet 5/325 -] 1 tab PO Q6H #20 tablet 07/30/15 Acetaminophen [Tylenol] 650 mg PO Q4H PRN #20 tablet 09/14/16 Oxycodone HCl 5 mg PO Q6H PRN #15 tablet MDD 4 09/14/16
== END 2016-09-20 13:00 | disposition home or self-care (01) | DRG 777 ==
LOC: JER 12:09 → JERBED 17:59 → J3W 23:56
PROVIDERS: ADMIT Obstetrics & Gynecology; ATTEND Obstetrics & Gynecology
PROC: 10T24ZZ Resection of Products of Conception, Ectopic, Percutaneous Endoscopic Approach (ICD-10-PCS; 2016-09-19)
PROC: 0UT54ZZ Resection of Right Fallopian Tube, Percutaneous Endoscopic Approach (ICD-10-PCS; principal; 2016-09-19 21:00)
DX: O00.10 Tubal pregnancy without intrauterine pregnancy (principal); Z3A.08 8 weeks gestation of pregnancy
CPT/HCPCS: 36415; 71010-TC; 76801-TC; 76817-TC; 80053; 81003; 81015; 83690; 84702; 85025; 85610; 85730; 86850; 86900; 86901; 87086; 88305-TC; 93005; 93010; 94760; 99285-25

== ENCOUNTER 2017-01-11 22:53 | Emergency (ER) | payer OTHER ==
[2017-01-11 23:07] VITALS: TEMP 98; BMI 26.4
--- NOTE | 2017-01-11 23:19 | PDOC ---
History of Present Illness - General History Source: Patient Exam Limitations: No Limitations - History of Present Illness Initial Comments: 01/12/17 00:17 The patient is a 31 year old female with no significant past medical history who presents to the ED complaining of 5-6 days of diffuse chest "heaviness" with tingling in the bilateral upper extremities and right side of the face. No headache, blurred vision, or focal weakness. No true chest pain, lightheadedness , or shortness of breath. No nausea, vomiting, or diarrhea. <Darcie Pascual - Last Filed: 01/12/17 00:17> <Kamryn Rojo - Last Filed: 01/12/17 23:26> - General Chief Complaint: Chest Pain Stated Complaint: CHEST PAIN Time Seen by Provider: 01/11/17 23:17 Past History <Darcie Pascual - Last Filed: 01/12/17 00:17> - Past Medical History Anemia: Yes Asthma: Yes Cancer: No Cardiac Disorders: No CVA: No COPD: No CHF: No Dementia: No Diabetes: No GI Disorders: No Disorders: No HTN: No Hypercholesterolemia: No Liver Disease: No Seizures: No Thyroid Disease: No - Surgical History Abdominal Surgery: No Appendectomy: No Cardiac Surgery: No Cholecystectomy: No Lung Surgery: No Neurologic Surgery: No Orthopedic Surgery: No - Reproductive History (#): 3 Para: 0 Cervical CA: No Dysfunctional Uterine Bleeding: No Ectopic : Yes (1) Endometrial CA: No Polycystic Ovaries: No Therapeutic (s) & number: Yes (1) Tubal Ligation: No Spontaneous : 1 - Immunization History Immunization Up to Date: Yes - Psycho/Social/Smoking Cessation Hx Anxiety: No Suicidal Ideation: No Smoking History: Never smoked Have you smoked in the past 12 months: No Hx Alcohol Use: No Drug/Substance Use Hx: No Substance Use Type: None Hx Substance Use Treatment: No <Kamryn Rojo - Last Filed: 01/12/17 23:26> - Past Medical History Allergies/Adverse Reactions: Allergies Allergy/AdvReac Type Severity Reaction Status Date / Time No Known Allergies Allergy Verified 01/11/17 23:34 Home Medications: Ambulatory Orders Metaxalone 2 tab PO QID #40 tablet 01/12/17 Review of Systems - Review of Systems Able to Perform ROS?: Yes Comments:: 01/12/17 00:20 GENERAL/CONSTITUTIONAL: No fever or chills. No weakness. HEAD, EYES, EARS, NOSE AND THROAT: No change in vision. No ear pain or discharge. No sore throat CARDIOVASCULAR: Diffuse chest heaviness. No chest pain or shortness of breath. RESPIRATORY: No cough, wheezing, or hemoptysis. GASTROINTESTINAL: No nausea, vomiting, diarrhea or constipation. GENITOURINARY: No dysuria, frequency, or change in urination. MUSCULOSKELETAL: No joint or muscle swelling or pain. No neck or back pain. SKIN: No rash NEUROLOGIC: Bilateral upper extremity tingling, r sided facial tingling. No headache, vertigo, loss of consciousness, or change in strength. ENDOCRINE: No increased thirst. No abnormal weight change. HEMATOLOGIC/LYMPHATIC: No anemia, easy bleeding, or history of blood clots. ALLERGIC/IMMUNOLOGIC: No hives or skin allergy. <Darcie Pascual - Last Filed: 01/12/17 00:17> *Physical Exam - Vital Signs Last Vital Signs Temp Pulse Resp BP Pulse Ox 98 F 80 16 122/82 99 01/11/17 23:06 01/11/17 23:06 01/11/17 23:06 01/11/17 23:06 01/11/17 23:20 - Physical Exam Comments: 01/12/17 00:21 GENERAL: Awake, alert, and fully oriented, in no acute distress HEAD: No signs of trauma EYES: PERRLA, EOMI, sclera anicteric, conjunctiva clear ENT: Auricles normal inspection, hearing grossly normal, nares patent, oropharynx clear without exudates. Moist mucosa NECK: Normal ROM, supple, no lymphadenopathy, JVD, or masses LUNGS: Breath sounds equal, clear to auscultation bilaterally. No wheezes, and no crackles HEART: Regular rate and rhythm, normal S1 and S2, no murmurs, rubs or gallops ABDOMEN: Soft, nontender, normoactive bowel sounds. No guarding, no rebound. No masses EXTREMITIES: Normal range of motion, no edema. No clubbing or cyanosis. No cords, erythema, or tenderness NEUROLOGICAL: Cranial nerves II through XII grossly intact. Normal speech, normal gait SKIN: Warm, Dry, normal turgor, no rashes or lesions noted. <Darcie Pascual - Last Filed: 01/12/17 00:17> - Vital Signs Last Vital Signs Temp Pulse Resp BP Pulse Ox 98 F 80 16 122/82 99 01/11/17 23:06 01/11/17 23:06 01/11/17 23:06 01/11/17 23:06 01/11/17 23:06 <Kamryn Rojo - Last Filed: 01/12/17 23:26> ED Treatment Course - LABORATORY CBC & Chemistry Diagram: 01/12/17 01:17 01/12/17 01:17 <Kamryn Rojo - Last Filed: 01/12/17 23:26> Medical Decision Making - Medical Decision Making 01/12/17 23:25 pt comes with chest pain and back pain and complaint that she has had this in the past. Exam normal, labs normal, everything normal. This is muscular pain. I will call it fibromyalgia. There seems to be an emotional/ anxiety component to her pain. NSAIDs and muscle relaxants. Follow with PMD. <Kamryn Rojo - Last Filed: 01/12/17 23:26> *DC/Admit/Observation/Transfer - Attestations Scribe Attestion: 01/12/17 00:22 Documentation prepared by Darcie Pascual, acting as medical equipment technician for Kamryn Rojo MD. <Darcie Pascual - Last Filed: 01/12/17 00:17> - Discharge Dispostion Admit: No <Kamryn Rojo - Last Filed: 01/12/17 23:26> Diagnosis at time of Disposition: Atypical chest pain, Fibromyalgia - Discharge Dispostion Disposition: HOME Condition at time of disposition: Stable - Prescriptions Prescriptions: Metaxalone 2 tab PO QID #40 tablet - Referrals Referrals: Naun Vogel MD [Primary Care Provider] - - Patient Instructions Printed Discharge Instructions: DI for Atypical Chest Pain, Fibromyalgia
[2017-01-12] MEDS ORDERED: METHOCARBAMOL 500 MG TABLET PO ONE (00:20)
[2017-01-12] MEDS ORDERED: IBUPROFEN 600 MG TABLET (FP) PO ONE ×2 (00:20→01:22)
[2017-01-12] MEDS ORDERED: METHOCARBAMOL 500 MG TABLET ONE (01:21)
[2017-01-12 01:25] LABS: BASOPHIL 0.7 % (0-2.0); MCH 30.3 pg (25.7-33.7); MCHC 33.5 g/dl (32.0-36.0); MEAN CELL VOLUME 90.5 fl (80-96); MEAN PLT VOLUME 9.7 fl (7.5-11.1); PLATELET COUNT 188 K/MM3 (134-434); RDW 13.6 % (11.6-15.6); WHITE BLOOD COUNT 9.1 K/mm3 (4.0-10.0)
[2017-01-12 01:49] LABS: URINE APPEARANCE SLCLOUDY; URINE BILIRUBIN NEGATIVE (NEGATIVE); URINE BLOOD NEGATIVE (NEGATIVE); URINE COLOR LTYELLOW; URINE GLUCOSE (UA) NEGATIVE (NEGATIVE); URINE KETONE NEGATIVE (NEGATIVE); URINE NITRITE NEGATIVE (NEGATIVE); URINE PROTEIN NEGATIVE (NEGATIVE); URINE UROBILINOGEN NEGATIVE E.U./dl (0.2-1.0)
[2017-01-12 01:57] LABS: ALBUMIN 4.1 g/dl (3.4-5.0); ALK PHOS 88 U/L (45-117); ANION GAP 7 (8-16); BILIRUBIN,TOTAL 0.4 mg/dL (0.2-1.0); CALCIUM 9.2 mg/dL (8.5-10.1); CO2 29 mmol/L (21-32); COCKROFT - GAULT 102.1445; CREATININE 0.8 mg/dL (0.55-1.02); GLUCOSE,RANDOM 107 mg/dL (74-106); SGOT/AST 19 U/L (15-37); SGPT/ALT 25 U/L (12-78); TOT PROT 7.6 g/dl (6.4-8.2)
[2017-01-12 01:59] LABS: URINE LEUK ESTERASE TRACE (NEGATIVE)
[2017-01-12 02:03] LABS: URINE BACTERIA RARE /hpf (NONE SEEN); URINE MUCUS RARE; URINE RBC 1 /hpf (0-3); URINE WBC 6 /hpf (3-5)
[2017-01-12 02:37] VITALS: BP 120/80; PULSE 76
--- NOTE | 2017-01-13 10:41 | EKG ---
Test Reason : Blood Pressure : / mmHG Vent. Rate : 079 BPM Atrial Rate : 079 BPM P-R Int : 156 ms QRS Dur : 086 ms QT Int : 404 ms P-R-T Axes : 043 024 036 degrees QTc Int : 463 ms NORMAL SINUS RHYTHM POSSIBLE LEFT ATRIAL ENLARGEMENT RSR' OR QR PATTERN IN V1 SUGGESTS RIGHT VENTRICULAR CONDUCTION DELAY WHEN COMPARED WITH ECG OF 19-SEP-2016 17:48, NO SIGNIFICANT CHANGE WAS FOUND Confirmed by NAKIA MONTANO, MARIA LUZ ([id number]) on 01/13/2017 10:41:23 AM Referred By: Confirmed By:MARIA LUZ YEE MD
== END 2017-01-12 02:42 | disposition home or self-care (01) ==
LOC: JER 22:53
DX: M79.7 Fibromyalgia (principal); R07.89 Other chest pain; J45.909 Unspecified asthma, uncomplicated; D64.9 Anemia, unspecified
CPT/HCPCS: 36415; 80053; 81003; 81015; 84703; 85025; 85651; 93005; 93010; 99282-25

== ENCOUNTER 2017-05-30 19:10 | Emergency (ER) | payer OTHER ==
[2017-05-30 19:16] VITALS: TEMP 98.2; BMI 26.4
[2017-05-30] MEDS ORDERED: SODIUM CHLORIDE 1,000 ML IV STA (19:48)
[2017-05-30] MEDS ORDERED: LORazepam 0.5 MG TABLET PO ONE (19:48)
--- NOTE | 2017-05-30 19:57 | PDOC ---
History of Present Illness - General Chief Complaint: Syncope/Near Syncope Stated Complaint: FATIGUE Time Seen by Provider: 05/30/17 19:47 History Source: Patient Exam Limitations: No Limitations - History of Present Illness Initial Comments: 05/30/17 19:51 32yo Female patient with no significant past medical history presents to ED c/o syncopal episode at home. Patient states incident was witnessed and she passed out for 5 mins. Patient states she feels anxious and lightheaded. She reports similar symptoms on Friday that went away, but she believes she has been under a lot of stress due to family in [place]. Patient also stated, she had been diagnosed 6 months ago with anxiety, but did not seek psychiatric evaluation as recommended. Associated dizziness. Denies CP, Abd pain, Diff breathing, SOB, fever, cough, congestion, h/a, confusion, disorientation or any other complaints at this time. LNMP: Apr 28. PCP- Naun Marino. Presenting Symptoms: Dizziness, Syncope Timing/Duration: reports: constant. denies: getting worse, changing over time, intermittent, resolved prior to arrival, gone now, other Severity/Quality: reports: moderate. denies: mild, severe, aching, burning, dull, ingestion, pressure, sharp, stabbing, tearing, tightness, other Past History - Travel Traveled outside of the country in the last 30 days: No Close contact w/someone who was outside of country & ill: No - Past Medical History Allergies/Adverse Reactions: Allergies Allergy/AdvReac Type Severity Reaction Status Date / Time No Known Allergies Allergy Verified 05/30/17 19:16 Home Medications: Ambulatory Orders Alprazolam [Xanax] 0.5 mg PO TID PRN #15 tablet MDD 3 tabs 05/30/17 Anemia: No Asthma: No Cancer: No Cardiac Disorders: No CVA: No COPD: No CHF: No Dementia: No Diabetes: No GI Disorders: No Disorders: No HTN: No Hypercholesterolemia: No Liver Disease: No Seizures: No Thyroid Disease: No - Surgical History Abdominal Surgery: No Appendectomy: No Cardiac Surgery: No Cholecystectomy: No Lung Surgery: No Neurologic Surgery: No Orthopedic Surgery: No - Reproductive History (#): 3 Para: 0 Cervical CA: No Dysfunctional Uterine Bleeding: No Ectopic : Yes (1) Endometrial CA: No Polycystic Ovaries: No Therapeutic (s) & number: Yes (1) Tubal Ligation: No Spontaneous : 1 - Immunization History Immunization Up to Date: Yes - Suicide/Smoking/Psychosocial Hx Smoking History: Never smoked Have you smoked in the past 12 months: No Hx Alcohol Use: No Drug/Substance Use Hx: No Substance Use Type: None Hx Substance Use Treatment: No Cardiac Specific PMH - Complaint Specific PMHX Abdominal Aortic Aneurysm: No Angina: No Cardiac Arrhythmia: No Cardiac Stent: No GERD: No Myocardial Infarction: No Pacemaker: No Pulmonary Embolus: No Valvular Heart Disease: No Peripheral Vascular Disease: No Review of Systems - Review of Systems Able to Perform ROS?: Yes Is the patient limited Wallisian proficient: No Constitutional: No: Chills, Fever HEENTM: No: Throat Pain, Mouth Pain Respiratory: No: Cough, Shortness of Breath, Stridor, Wheezing, Productive cough Cardiac (ROS): Yes: Lightheadedness, Syncope. No: Chest Pain, Irregular Heart Rate, Palpitations, Chest Tightness ABD/GI: No: Constipated, Diarrhea, Nausea, Poor Appetite, Poor Fluid Intake, Vomiting, Abdominal cramping : No: Dysuria Musculoskeletal: No: Back Pain Integumentary: No: Erythema, Rash, Sweating Neurological: Yes: Dizziness. No: Headache, Numbness, Paresthesia, Seizure, Tingling, Tremors, Weakness, Unsteady Gait, Ataxia All Other Systems: Reviewed and Negative *Physical Exam - Vital Signs Last Vital Signs Temp Pulse Resp BP Pulse Ox 98.2 F 77 18 134/96 99 05/30/17 19:14 05/30/17 19:14 05/30/17 19:14 05/30/17 19:14 05/30/17 19:14 - Physical Exam General Appearance: Yes: Nourished, Appropriately Dressed. No: Apparent Distress, Mild Distress, Moderate Distress, Severe Distress HEENT: positive: EOMI, BRIAN, Normal ENT Inspection, Normal Voice, Symmetrical, TMs Normal, Pharynx Normal. negative: Pharyngeal Erythema, Tonsillar Exudate, Tonsillar Erythema, Nasal Congestion, Rhinorrhea, Sinus Tenderness, TM Bulging, TM Dull, TM Erythema Neck: positive: Trachea midline, Supple. negative: Stridor, Lymphadenopathy (R) , Lymphadenopathy (L) Respiratory/Chest: positive: Lungs Clear, Normal Breath Sounds. negative: Respiratory Distress, Labored Respiration, Paradoxal Breathing, Rhonchi, Stridor , Wheezing Cardiovascular: positive: Regular Rhythm, Regular Rate Gastrointestinal/Abdominal: positive: Normal Bowel Sounds, Soft. negative: Distended, Guarding, Rebound, Tenderness Musculoskeletal: positive: Normal Inspection. negative: CVA Tenderness Extremity: positive: Normal Capillary Refill, Normal Inspection, Normal Range of Motion. negative: Pedal Edema, Swelling, Calf Tenderness, Erythema, Inflammation Integumentary: positive: Normal Color, Dry, Warm. negative: Erythema, Rash, Swelling, Bruising Neurologic: positive: baby sitter II-XII NML intact, Fully Oriented, Alert, Normal Mood/ Affect, Normal Response, Motor Strength 5/5 Heart Score/ECG Review - History History: Slightly suspicious - Electrocardiogram EKG: Normal - Age Age: </= 45 - Risk Factors Risk Factors Heart Score: No Hx Hypercholesterolemia, No Hx Hypertension, No Hx Diabetes, No Smoking History, No Positive family hx of cardiac disease, No Hx Obesity Based on the list above the patient has:: No risk factors known - Troponin Troponin: </= normal limit - Score Heart Score - Total: 0 - ECG Impressions Normal ECG: Yes Non-specific ST Elevation: No Ischemic Changes: No Bradycardia: No Torsades sanket Pointes: No WPW: No ED Treatment Course - LABORATORY CBC & Chemistry Diagram: 05/30/17 20:21 05/30/17 21:45 - ADDITIONAL ORDERS Additional order review: Laboratory Results 05/30/17 05/30/17 05/30/17 22:20 22:20 21:45 Sodium 138 Potassium 4.0 Chloride 102 Carbon Dioxide 26 Anion Gap 10 BUN 11 D Creatinine 0.7 Creat Clearance w eGFR > 60 Random Glucose 86 Calcium 9.5 Total Bilirubin 0.3 D AST 23 D ALT 26 Alkaline Phosphatase 95 Creatine Kinase 134 Troponin I < 0.02 Total Protein 8.4 H Albumin 4.4 TSH 3.50 Urine Color Urine Appearance Urine pH Ur Specific [place] Urine Protein Urine Glucose (UA) Urine Ketones Urine Blood Urine Nitrite Urine Bilirubin Urine Urobilinogen Urine HCG, Qual Opiates Screen Negative Methadone Screen Negative Barbiturate Screen Negative Phencyclidine Screen Negative Ur Amphetamines Screen Negative MDMA (Ecstasy) Screen Negative Benzodiazepines Screen Negative Cocaine Screen Negative U Marijuana (THC) Screen Negative 05/30/17 05/30/17 20:21 20:21 Sodium Cancelled Potassium Cancelled Chloride Cancelled Carbon Dioxide Cancelled Anion Gap Cancelled BUN Cancelled Creatinine Cancelled Creat Clearance w eGFR Cancelled Random Glucose Cancelled Calcium Cancelled Total Bilirubin Cancelled AST Cancelled ALT Cancelled Alkaline Phosphatase Cancelled Creatine Kinase Cancelled Troponin I Cancelled Total Protein Cancelled Albumin Cancelled TSH Cancelled Urine Color Straw Urine Appearance Clear Urine pH 7.0 Ur Specific [place] 1.010 Urine Protein Negative Urine Glucose (UA) Negative Urine Ketones Negative Urine Blood Negative Urine Nitrite Negative Urine Bilirubin Negative Urine Urobilinogen Negative Urine HCG, Qual Negative Opiates Screen Methadone Screen Barbiturate Screen Phencyclidine Screen Ur Amphetamines Screen MDMA (Ecstasy) Screen Benzodiazepines Screen Cocaine Screen U Marijuana (THC) Screen 05/30/17 20:21 RBC 4.40 MCV 93.8 MCHC 34.0 RDW 12.8 MPV 10.0 Neutrophils % 54.8 Lymphocytes % 34.6 Monocytes % 8.1 Eosinophils % 1.7 Basophils % 0.8 - RADIOLOGY Radiology Studies Ordered: Category Date Time Status HEAD CT WITHOUT CONTRAST [CT] Stat CT Scan 05/30/17 19:56 Completed - Medications Given in the ED: ED Medications Discontinued Medications Generic Name Dose Route Start Last Admin Trade Name Freq PRN Reason Stop Dose Admin Sodium Chloride 1,000 mls @ 1,000 mls/hr 05/30/17 19:48 05/30/17 20:30 Normal Saline - IV 05/30/17 20:47 1,000 mls/hr ASDIR STA Administration Lorazepam 0.5 mg 05/30/17 19:48 05/30/17 20:30 Ativan - PO 05/30/17 19:49 0.5 mg ONCE ONE Administration *DC/Admit/Observation/Transfer Diagnosis at time of Disposition: Anxiety about health Anxiety disorder Qualifiers: Anxiety disorder type: generalized anxiety disorder Qualified Code(s): F41.1 - Generalized anxiety disorder - Discharge Dispostion Disposition: HOME Condition at time of disposition: Improved Admit: No - Prescriptions Prescriptions: Alprazolam [Xanax] 0.5 mg PO TID PRN #15 tablet MDD 3 tabs PRN Reason: Anxiety, Insomnia - Referrals Referrals: Naun Vogel MD [Primary Care Provider] - Magnolia Echeverria MD [Staff Physician] - - Patient Instructions Printed Discharge Instructions: DI for Anxiety -- Adult, DI for Panic Disorder Additional Instructions: Follow up with Dr. Echeverria this week. Call to schedule appointment. Take medications as prescribed. Do not drive, drink alcohol, or operate heavy machinery while taking Xanax. Return if symptoms worsen. Also, make appointment to speak with your primary care provider. You may use Xanax at night to help you sleep. Drink plenty fluids (Water). Print Language: BARBADIAN
[2017-05-30] MEDS ORDERED: LORazepam 0.5 MG TABLET ONE (20:14)
[2017-05-30 20:33] LABS: BASOPHIL 0.8 % (0-2.0); EOSINOPHIL 1.7 % (0-4.5); MCH 31.9 pg (25.7-33.7); MEAN CELL VOLUME 93.8 fl (80-96); NEUTROPHILS 54.8 % (42.8-82.8); PLATELET COUNT 202 K/MM3 (134-434); RDW 12.8 % (11.6-15.6)
[2017-05-30 20:38] LABS: URINE APPEARANCE CLEAR; URINE BILIRUBIN NEGATIVE (NEGATIVE); URINE BLOOD NEGATIVE (NEGATIVE); URINE COLOR STRAW; URINE GLUCOSE (UA) NEGATIVE (NEGATIVE); URINE KETONE NEGATIVE (NEGATIVE); URINE LEUK ESTERASE NEGATIVE (NEGATIVE); URINE NITRITE NEGATIVE (NEGATIVE); URINE PROTEIN NEGATIVE (NEGATIVE); URINE UROBILINOGEN NEGATIVE mg/dL (0.2-1.0)
[2017-05-30 22:40] LABS: URINE MARIJUANA THC NEGATIVE ng/ml (CUTOFF=50)
--- NOTE | 2017-05-30 22:57 | PDOC ---
*Physical Exam - Vital Signs Last Vital Signs Temp Pulse Resp BP Pulse Ox 98.2 F 77 18 134/96 99 05/30/17 19:14 05/30/17 19:14 05/30/17 19:14 05/30/17 19:14 05/30/17 19:14 ED Treatment Course - LABORATORY CBC & Chemistry Diagram: 05/30/17 20:21 05/30/17 21:45 - ADDITIONAL ORDERS Additional order review: Laboratory Results 05/30/17 05/30/17 05/30/17 22:20 22:20 20:21 Sodium Cancelled Potassium Cancelled Chloride Cancelled Carbon Dioxide Cancelled Anion Gap Cancelled BUN Cancelled Creatinine Cancelled Creat Clearance w eGFR Cancelled Random Glucose Cancelled Calcium Cancelled Total Bilirubin Cancelled AST Cancelled ALT Cancelled Alkaline Phosphatase Cancelled Creatine Kinase Cancelled Troponin I Cancelled Total Protein Cancelled Albumin Cancelled TSH 3.50 Cancelled Urine Color Urine Appearance Urine pH Ur Specific [place] Urine Protein Urine Glucose (UA) Urine Ketones Urine Blood Urine Nitrite Urine Bilirubin Urine Urobilinogen Urine HCG, Qual Opiates Screen Negative Methadone Screen Negative Barbiturate Screen Negative Phencyclidine Screen Negative Ur Amphetamines Screen Negative MDMA (Ecstasy) Screen Negative Benzodiazepines Screen Negative Cocaine Screen Negative U Marijuana (THC) Screen Negative 05/30/17 20:21 Sodium Potassium Chloride Carbon Dioxide Anion Gap BUN Creatinine Creat Clearance w eGFR Random Glucose Calcium Total Bilirubin AST ALT Alkaline Phosphatase Creatine Kinase Troponin I Total Protein Albumin TSH Urine Color Straw Urine Appearance Clear Urine pH 7.0 Ur Specific [place] 1.010 Urine Protein Negative Urine Glucose (UA) Negative Urine Ketones Negative Urine Blood Negative Urine Nitrite Negative Urine Bilirubin Negative Urine Urobilinogen Negative Urine HCG, Qual Negative Opiates Screen Methadone Screen Barbiturate Screen Phencyclidine Screen Ur Amphetamines Screen MDMA (Ecstasy) Screen Benzodiazepines Screen Cocaine Screen U Marijuana (THC) Screen 05/30/17 20:21 RBC 4.40 MCV 93.8 MCHC 34.0 RDW 12.8 MPV 10.0 Neutrophils % 54.8 Lymphocytes % 34.6 Monocytes % 8.1 Eosinophils % 1.7 Basophils % 0.8 - Medications Given in the ED: ED Medications Discontinued Medications Generic Name Dose Route Start Last Admin Trade Name Freq PRN Reason Stop Dose Admin Sodium Chloride 1,000 mls @ 1,000 mls/hr 05/30/17 19:48 05/30/17 20:30 Normal Saline - IV 05/30/17 20:47 1,000 mls/hr ASDIR STA Administration Lorazepam 0.5 mg 05/30/17 19:48 05/30/17 20:30 Ativan - PO 05/30/17 19:49 0.5 mg ONCE ONE Administration Medical Decision Making - Medical Decision Making 05/30/17 22:57 The patient was seen and evaluated in conjunction with WILLIS De La Cruz under my direct supervision, ancillary studies were reviewed. I agree with the plan as outlined by WILLIS De aL Cruz. *DC/Admit/Observation/Transfer Diagnosis at time of Disposition: Anxiety about health, Anxiety disorder - Prescriptions Prescriptions: Alprazolam [Xanax] 0.5 mg PO TID PRN #15 tablet MDD 3 tabs PRN Reason: Anxiety, Insomnia - Referrals Referrals: Magnolia Echeverria MD [Staff Physician] - Naun Vogel MD [Primary Care Provider] - - Patient Instructions Printed Discharge Instructions: DI for Anxiety -- Adult, DI for Panic Disorder Additional Instructions: Follow up with Dr. Echeverria this week. Call to schedule appointment. Take medications as prescribed. Do not drive, drink alcohol, or operate heavy machinery while taking Xanax. Return if symptoms worsen. Also, make appointment to speak with your primary care provider. You may use Xanax at night to help you sleep. Drink plenty fluids (Water). Print Language: AUSTRIAN
[2017-05-30 23:19] LABS: ALBUMIN 4.4 g/dl (3.4-5.0); ANION GAP 10 (8-16); BILIRUBIN,TOTAL 0.3 mg/dL (0.2-1.0); CALCIUM 9.5 mg/dL (8.5-10.1); CO2 26 mmol/L (21-32); CREATININE 0.7 mg/dL (0.55-1.02); GLUCOSE,RANDOM 86 mg/dL (74-106); SGOT/AST 23 U/L (15-37); SGPT/ALT 26 U/L (12-78); TOT PROT 8.4 g/dl (6.4-8.2)
[2017-05-30 23:22] LABS: ALK PHOS 95 U/L (45-117); CPK 134 IU/L (26-192); TROPONIN I < 0.02 ng/ml (0.00-0.05)
[2017-05-31 00:22] VITALS: BP 140/60; PULSE 66
--- NOTE | 2017-05-31 13:01 | EKG ---
Test Reason : Blood Pressure : / mmHG Vent. Rate : 063 BPM Atrial Rate : 063 BPM P-R Int : 166 ms QRS Dur : 090 ms QT Int : 426 ms P-R-T Axes : 038 023 039 degrees QTc Int : 435 ms NORMAL SINUS RHYTHM POSSIBLE LEFT ATRIAL ENLARGEMENT RSR' OR QR PATTERN IN V1 SUGGESTS RIGHT VENTRICULAR CONDUCTION DELAY WHEN COMPARED WITH ECG OF 11-JAN-2017 23:11, NO SIGNIFICANT CHANGE WAS FOUND Confirmed by EDMUND MCCOY MD ([id number]) on 05/31/2017 1:00:31 PM Referred By: Confirmed By:EDMUND MCCOY MD
== END 2017-05-31 00:22 | disposition home or self-care (01) ==
LOC: JER 19:10
PROC: 3E0337Z Introduction of Electrolytic and Water Balance Substance into Peripheral Vein, Percutaneous Approach (ICD-10-PCS; principal; 2017-05-30)
DX: F06.4 Anxiety disorder due to known physiological condition (principal); F41.0 Panic disorder [episodic paroxysmal anxiety]
CPT/HCPCS: 36415; 70450-TC; 80053; 80307; 81003; 84443; 84484; 84703; 85025; 93005; 93010; 99282-25

== ENCOUNTER 2019-07-04 00:46 | Emergency (ER) | payer OTHER ==
--- NOTE | 2019-07-04 01:14 | PDOC ---
Attending Attestation - Resident Resident Name: AlonzoJohanna martel - ED Attending Attestation I have performed the following: I have examined & evaluated the patient, The case was reviewed & discussed with the resident, I agree w/resident's findings & plan - HPI HPI: 07/04/19 01:31 EST see resident hpi - Physicial Exam PE: 07/04/19 01:31 EST agree with resident exam - Medical Decision Making 07/04/19 01:31 EST 34-year-old female with right ear pain and pressure Exam shows possible mild middle ear effusion with no overt signs of infection Patient was recently on a course of Augmentin with failure to improve Plan for Toradol, Decadron and a course of Levaquin for possible atypical infection We will follow-up with ENT
[2019-07-04] MEDS ORDERED: IBUPROFEN 400 MG TABLET (FP) PO ONE (01:15)
[2019-07-04] MEDS ORDERED: DEXAMETHASONE SOD PHOSPHATE 10 MG/1 ML VIAL IM ONE (01:25)
[2019-07-04] MEDS ORDERED: KETOROLAC TROMETHAMINE 15 MG/ML VIAL IM ONE (01:25)
[2019-07-04 01:32] VITALS: TEMP 98.2; BMI 23.8
--- NOTE | 2019-07-04 01:55 | PDOC ---
History of Present Illness - General Chief Complaint: Pain Stated Complaint: RIGHT PAIN OF HEAD AND FACE Time Seen by Provider: 07/04/19 01:54 EDT - History of Present Illness Initial Comments: 07/04/19 01:54 EDT 34 yo F PMH anxiety presenting with R ear pain for the past 2 weeks. Reportedly saw her PCP 2 weeks ago when pain first began, gave her neomycin otic drops and oral antibiotics. These have not alleviated her symptoms, and acetaminophen also has not helped. R ear pain associated with throbbing R sided headache and radiation into jaw. No history of ear infections except when she was a child, no recent swimming, no pain tugging on earlobe. Does endorse dizziness like "room is spinning" but only when ear pain is very bad. Denies fevers/chills, N/V, sick contacts, recent travel. Past History - Past Medical History Allergies/Adverse Reactions: Allergies Allergy/AdvReac Type Severity Reaction Status Date / Time No Known Allergies Allergy Verified 05/30/17 19:16 Home Medications: Ambulatory Orders Levofloxacin [Levaquin] 500 mg PO DAILY #5 tablet 07/04/19 Anemia: No Asthma: No Cancer: No Cardiac Disorders: No CVA: No COPD: No CHF: No Dementia: No Diabetes: No GI Disorders: No Disorders: No HTN: No Hypercholesterolemia: No Liver Disease: No Seizures: No Thyroid Disease: No - Surgical History Abdominal Surgery: No Appendectomy: No Cardiac Surgery: No Cholecystectomy: No Lung Surgery: No Neurologic Surgery: No Orthopedic Surgery: No - Reproductive History (#): 3 Para: 0 Cervical CA: No Dysfunctional Uterine Bleeding: No Ectopic : Yes (1) Endometrial CA: No Polycystic Ovaries: No Therapeutic (s) & number: Yes (1) Tubal Ligation: No Spontaneous : 1 - Immunization History Immunization Up to Date: Yes - Psycho Social/Smoking Cessation Hx Smoking History: Never smoked Have you smoked in the past 12 months: No Information on smoking cessation initiated: No Hx Alcohol Use: No Drug/Substance Use Hx: No Substance Use Type: None Hx Substance Use Treatment: No Review of Systems - Review of Systems Constitutional: No: Chills, Fever HEENTM: Yes: Ear Pain (Right). No: Recent change in vision, Nose Pain, Tinnitus , Throat Pain, Mouth Pain, Difficulty Swallowing Respiratory: No: Cough, Shortness of Breath Cardiac (ROS): No: Chest Pain ABD/GI: No: Constipated, Diarrhea, Nausea, Vomiting : No: Flank Pain Musculoskeletal: No: Back Pain, Muscle Pain Neurological: Yes: Headache (R sided), Dizziness ("room spinning" intermittent) . No: Tingling, Tremors, Weakness *Physical Exam - Vital Signs Last Vital Signs Temp Pulse Resp BP Pulse Ox 98.2 F 98 H 20 146/92 100 07/04/19 00:55 07/04/19 00:55 07/04/19 00:55 07/04/19 00:55 07/04/19 00:55 - Physical Exam Comments: 07/04/19 01:12 EST Gen: well-developed, well-nourished, NAD Neuro: AAOX4, CN II-XII intact, FTN intact, EOMI, PERRLA, 5/5 strength, SILT HEENT: atraumatic, normocephalic. Mild edema of R tympanic membrane, no external erythema or ttp Neck: trachea midline, supple CV: regular rate, regular rhythm, no murmurs, rubs, or gallops Pulm: CTA b/l, no wheezing Abd: soft, non-distended, non-tender MSK: full ROM, intact pulses Extr: no edema, no deformities Skin: warm, dry Medical Decision Making - Medical Decision Making 07/04/19 01:15 EST Physical exam consistent with R otitis media. Will send home on short course of Augmentin. Discharge - Discharge Information Problems reviewed: Yes Clinical Impression/Diagnosis: Otitis media Condition: Stable Disposition: HOME - Additional Discharge Information Prescriptions: Levofloxacin [Levaquin] 500 mg PO DAILY #5 tablet - Follow up/Referral Referrals: Naun Vogel MD [Primary Care Provider] - - Patient Discharge Instructions Additional Instructions: You were seen with R ear pain. This is likely due to an ear infection. Take your Levaquin once a day for 5 days. Follow up with your primary care doctor. Return to the ED if you develop worsening symptoms. - Post Discharge Activity
[2019-07-04] MEDS ORDERED: KETOROLAC TROMETHAMINE 15 MG/ML VIAL ONE (02:04)
[2019-07-04] MEDS ORDERED: DEXAMETHASONE SOD PHOSPHATE 10 MG/1 ML VIAL ONE (02:11)
[2019-07-04 02:40] VITALS: BP 141/87; PULSE 89
== END 2019-07-04 02:38 | disposition home or self-care (01) ==
LOC: JER 00:46
PROC: 3E0233Z Introduction of Anti-inflammatory into Muscle, Percutaneous Approach (ICD-10-PCS; principal; 2019-07-04)
PROC: 3E0233Z Introduction of Anti-inflammatory into Muscle, Percutaneous Approach (ICD-10-PCS; 2019-07-04)
DX: H66.91 Otitis media, unspecified, right ear (principal)
CPT/HCPCS: 99282-25; J1100

== ENCOUNTER 2020-11-19 11:18 | Emergency (ER) | payer OTHER ==
[2020-11-19 11:34] VITALS: BP 137/86; PULSE 80; TEMP 97; BMI 24.5
[2020-11-19] MEDS ORDERED: SODIUM CHLORIDE 0.9% 500 ML INFUS.BAG IV ONE (12:10)
[2020-11-19 13:13] LABS: BASO % 0.8 % (0-2.0); EOS % 0.1 % (0-4.5); HEMATOCRIT 40.7 % (32.4-45.2); LYMPH % 24.6 % (8-40); MCH 32.6 pg (25.7-33.7); MCHC 34.4 g/dl (32.0-36.0); MEAN PLT VOLUME 9.2 fl (7.5-11.1); MONO % 6.4 % (3.8-10.2); NEUT % 68.1 % (42.8-82.8); PLATELET COUNT 238 K/MM3 (134-434); RBC 4.29 M/mm3 (3.60-5.2); RDW 12.5 % (11.6-15.6); WHITE BLOOD COUNT 7.7 K/mm3 (4.0-10.0)
[2020-11-19 13:21] LABS: CHLORIDE 102 mmol/L (98-107); POTASSIUM 5.8 mmol/L (3.5-5.1); SODIUM 136 mmol/L (136-145)
[2020-11-19 13:23] LABS: CALCIUM 9.6 mg/dL (8.5-10.1)
[2020-11-19 13:24] LABS: ALBUMIN 4.1 g/dl (3.4-5.0); ANION GAP 8 MMOL/L (8-16); BLOOD UREA NITROGEN 7.1 mg/dL (7-18); CO2 26 mmol/L (21-32); GLUCOSE,RANDOM 86 mg/dL (74-106)
[2020-11-19 13:25] LABS: INR 0.93 (0.83-1.09); PROTHROMBIN TIME (PATIENT) 11.5 SEC (9.7-13.0)
[2020-11-19 13:27] LABS: CREATININE 0.7 mg/dL (0.55-1.3); SGOT/AST 54 U/L (15-37); SGPT/ALT 27 U/L (13-61)
[2020-11-19 13:29] LABS: BILIRUBIN,TOTAL 0.9 mg/dL (0.2-1); TOT PROT 8.6 g/dl (6.4-8.2)
[2020-11-19 13:30] LABS: ALK PHOS 82 U/L (45-117)
[2020-11-19 17:33] LABS: POTASSIUM 3.8 mmol/L (3.5-5.1)
== END 2020-11-19 17:56 | disposition home or self-care (01) ==
LOC: JER 11:18
DX: R07.9 Chest pain, unspecified (principal)
CPT/HCPCS: 36415; 70450-TC; 71045-TC-FY; 71275-TC; 80053; 82550; 82553; 84132; 84484; 84703; 85025; 85379; 85610; 93005; 93010; 99285-25; Q9967

== ENCOUNTER 2021-03-30 13:12 | Emergency (ER) | payer OTHER ==
[2021-03-30 14:17] VITALS: BMI 24.5
[2021-03-30 15:10] LABS: BASO % 0.7 % (0-2.0); EOS % 0.2 % (0-4.5); HEMATOCRIT 41.9 % (32.4-45.2); HEMOGLOBIN 14.4 GM/dL (10.7-15.3); MCH 33.3 pg (25.7-33.7); MCHC 34.4 g/dl (32.0-36.0); MEAN CELL VOLUME 96.7 fl (80-96); MEAN PLT VOLUME 8.6 fl (7.5-11.1); MONO % 6.7 % (3.8-10.2); NEUT % 75.4 % (42.8-82.8); PLATELET COUNT 237 10^3/uL (134-434); RBC 4.34 M/mm3 (3.60-5.2); WHITE BLOOD COUNT 6.3 K/mm3 (4.0-10.0)
[2021-03-30 15:12] LABS: PH,URINE 8.5 (5.0-8.0); URINE APPEARANCE CLOUDY; URINE BILIRUBIN NEGATIVE (NEGATIVE); URINE COLOR YELLOW; URINE GLUCOSE (UA) NEGATIVE (NEGATIVE); URINE KETONE NEGATIVE (NEGATIVE); URINE LEUK ESTERASE NEGATIVE (NEGATIVE); URINE NITRITE NEGATIVE (NEGATIVE); URINE PROTEIN NEGATIVE (NEGATIVE); URINE UROBILINOGEN 0.2 mg/dL (0.2-1.0)
[2021-03-30 15:21] LABS: CHLORIDE 100 mmol/L (98-107); SODIUM 138 mmol/L (136-145)
[2021-03-30 15:23] LABS: ALBUMIN 4.5 g/dl (3.4-5.0); BLOOD UREA NITROGEN 6.9 mg/dL (7-18); CALCIUM 9.4 mg/dL (8.5-10.1)
[2021-03-30 15:24] LABS: ANION GAP 11 MMOL/L (8-16); CO2 28 mmol/L (21-32); GLUCOSE,RANDOM 110 mg/dL (74-106); LIPASE 185 U/L (73-393)
[2021-03-30 15:27] LABS: CREATININE 0.8 mg/dL (0.55-1.3); SGOT/AST 37 U/L (15-37); SGPT/ALT 46 U/L (13-61)
[2021-03-30 15:29] LABS: BILIRUBIN,TOTAL 0.6 mg/dL (0.2-1); TOT PROT 8.3 g/dl (6.4-8.2)
[2021-03-30 15:30] LABS: ALK PHOS 83 U/L (45-117)
[2021-03-30] MEDS ORDERED: KETOROLAC TROMETHAMINE 15 MG/ML VIAL IVPUSH ONE (16:20)
[2021-03-30] MEDS ORDERED: KETOROLAC TROMETHAMINE 15 MG/ML VIAL ONE (16:40)
[2021-03-30 17:22] VITALS: BP 131/78; PULSE 84; TEMP 98.4
== END 2021-03-30 17:22 | disposition home or self-care (01) ==
LOC: JER 13:12
PROC: 3E0333Z Introduction of Anti-inflammatory into Peripheral Vein, Percutaneous Approach (ICD-10-PCS; principal; 2021-03-30)
DX: M54.6 Pain in thoracic spine (principal); R11.2 Nausea with vomiting, unspecified; M79.10 Myalgia, unspecified site
CPT/HCPCS: 36415; 71046-TC-FY; 80053; 81003; 82550; 82553; 83690; 84484; 84703; 85025; 93005; 93010; 99285-25